=== PATIENT | female | born 1940 | race Caucasian/White ===

== ENCOUNTER 2016-04-29 15:02 | Emergency (ER) | payer OTHER ==
[~2016-04-29] VITALS: Ht 160 cm; Wt 81.6 kg
[~2016-04-29 15:02] MED LIST: METOPROLOL50 MG; MULTI VITAMINS1 TAB PO; NORCO 10/325 MG1 TAB; OMEPRAZOLE40 MG PO; PROMETHAZINE25 M1; ROPINIROLE HYDRO1 MG; VASOTEC10 M1 PO; [UNRECOGNIZED DRUG - OTHER]
[2016-04-29 15:03] VITALS: BP 148/57
--- NOTE | 2016-04-29 15:20 | NUR ---
PT TAKEN TO BED 6 VIA WHEELCHAIR.
--- NOTE | 2016-04-29 15:31 | NUR ---
75/F presents to ED for evaluation of right leg pain x1 day. Pt states "I twisted my leg yesterday." Pt also complaining of lower back pain. Patient is AOX4, w/c assisted to bed. Pt c/o 10 pain. Pt also states she has shortness of breath. No signs of respiratory distress noted. VSS.
[2016-04-29] MEDS ORDERED: HYDROmorphone 1 MG/ML AMP IM ONE (16:45)
[2016-04-29] MEDS ORDERED: ONDANSETRON 4 MG/2 ML VIAL IM ONE (16:45)
--- NOTE | 2016-04-29 17:23 | NUR ---
Patient appears to be resting comfortably in bed. Vital Signs within normal limits. Respirations even and unlabored. Family at bedside.
--- NOTE | 2016-04-29 17:54 | NUR ---
IV removed, catheter intact and site benign. Applied folded 4x4 gauze and tape to stop bleeding.
[2016-04-29 18:02] VITALS: BP 140/50
== END 2016-04-29 18:03 | disposition home or self-care (01) ==
LOC: MED 15:02
DX: M54.41 Lumbago with sciatica, right side (principal); M47.816 Spondylosis without myelopathy or radiculopathy, lumbar region; I10 Essential (primary) hypertension; K21.9 Gastro-esophageal reflux disease without esophagitis; E78.00 Pure hypercholesterolemia, unspecified; Z88.6 Allergy status to analgesic agent; Z79.899 Other long term (current) drug therapy
CPT/HCPCS: 72110; 96374; 96375; 99284; J1170; J2405

== ENCOUNTER 2016-07-04 22:13 | Emergency (ER) | payer OTHER ==
[~2016-07-04] VITALS: Ht 162.6 cm; Wt 83.9 kg
[~2016-07-04 22:13] MED LIST changes: -METOPROLOL50 MG; +MULT-2410 PO; -MULTI VITAMINS1 TAB PO; -NORCO 10/325 MG1 TAB; +OMEP40EC14 PO; -OMEPRAZOLE40 MG PO; +PROM25TA27; -PROMETHAZINE25 M1; +ROPI1TAB14; -ROPINIROLE HYDRO1 MG; +VAS10 PO; -VASOTEC10 M1 PO; -[UNRECOGNIZED DRUG - OTHER]
[2016-07-04 22:20] VITALS: BP 135/100
--- NOTE | 2016-07-04 22:25 | NUR ---
BIBA TO ER BED 3
--- NOTE | 2016-07-04 22:28 | NUR ---
75 Y/O BIBA C/O LEFT LEG AND LOWER BACK PAIN. PER PT NO TRAUMA NOR INJURY, CHRONIC PAIN, IT HURST ONLY WHEN MOVING OR CHANGING POSITIONS. PER PT SHE RUN OUT OF [employer] TODAY. NO S/S OF DISTRESS NOTED AT THE MOMENT. ER MADE AWARE.
[2016-07-04] MEDS ORDERED: MORPHINE SULFATE 2 MG/ML SYR IM ONE (23:25)
[2016-07-05] MEDS ORDERED: HYDROmorphone 1 MG/ML AMP IM ONE ×3 (00:10→02:50)
--- NOTE | 2016-07-05 02:40 | NUR ---
Road tested pt. Able to take a few steps and then went back to bed but she jacob the steps quite well and I believe if she had a goal of where to get to she would be able to do it. Notified Dr Aguirre. Dr Aguirre to order another 0.5 of Dilaudid so she can get in the house more comfortably.
[2016-07-05 03:13] VITALS: BP 131/64
--- NOTE | 2016-07-05 03:13 | NUR ---
Able to move and walk much easier. To POV via w/c. Mounika well. Patient discharged with v/s stable. Written and verbal after care instructions given and explained. Patient alert, oriented and verbalized understanding of instructions. Wheel Chair Assisted with to car. All questions addressed prior to discharge. ID band removed. Patient advised to follow up with PMD. Rx of Carbon 10/325 given. Patient educated on indication of medication including possible reaction and side effects. Opportunity to ask questions provided and answered.
== END 2016-07-05 03:18 | disposition home or self-care (01) ==
LOC: MED 22:13
DX: M54.42 Lumbago with sciatica, left side (principal); K21.9 Gastro-esophageal reflux disease without esophagitis; I10 Essential (primary) hypertension; Z88.6 Allergy status to analgesic agent; Z79.899 Other long term (current) drug therapy
CPT/HCPCS: 96372; 99284; J1170; J2270

== ENCOUNTER 2016-07-07 13:11 | Emergency (ER) | payer OTHER ==
[~2016-07-07] VITALS: Ht 162.6 cm; Wt 86.2 kg
[2016-07-07 13:15] VITALS: BP 140/71
--- NOTE | 2016-07-07 13:45 | NUR ---
PT W/C ASSISTED TO BED 7.
--- NOTE | 2016-07-07 13:47 | NUR ---
75F BIB GRANDDAUGHTER C/O ACHING LEFT LEG PAIN, RADIATES TO LEFT HIP AND LOWER BACK, 12/25 X 5 DAYS; PT DENIES TRAUMA OR INJURY TO SITE; LEFT PEDAL PULSE PALPABLE, LEFT CAP REFILL < 3 SECONDS, NO LOSS OF SENSATION TO LEFT LEG AT THIS TIME; NO SWELLING, REDNESS, OR HEAT NOTED TO LEFT LEG AT THIS TIME; PT A&OX4, BL LUNG SOUNDS CLEAR, RR EVEN/UNLABORED, SKIN IS WARM/DRY/INTACT AT THIS TIME; PT DENIES N/V/D AT THIS TIME; PT RESTING IN BED W/ HOB ELEVATED AND IN LOWEST POSITION; POSITIONED FOR COMFORT; ER MD MADE AWARE OF STATUS. WILL CONTINUE TO MONITOR.
[2016-07-07] MEDS ORDERED: NACL 0.9% 1,000 ML IV SCH (13:48)
[2016-07-07] MEDS ORDERED: HYDROmorphone 1 MG/ML AMP IVP ONE (13:50)
[2016-07-07] MEDS ORDERED: ONDANSETRON 4 MG/2 ML VIAL IVP ONE (13:50)
[2016-07-07 14:10] LABS: BASOPHILS # (AUTO) 0.1 K/uL (0.00-0.22); BASOPHILS % (AUTO) 1.3 % (0.0-2.0); EOSINOPHILS # (AUTO) 0.1 K/uL (0-0.4); EOSINOPHILS % (AUTO) 1.6 % (0.0-4.0); HEMATOCRIT 42.4 % (36-48); HEMOGLOBIN 13.9 g/dL (12.0-16.0); LYMPHOCYTES # (AUTO) 1.1 K/uL (2.5-16.5); LYMPHOCYTES % (AUTO) 15.4 % (20.5-51.1); MEAN CORPUSCULAR HEMOGLOBIN 29 pg (27-31); MEAN CORPUSCULAR HGB CONC 33 g/dL (33-37); MEAN CORPUSCULAR VOLUME 89 fL (80-94); MONOCYTES # (AUTO) 0.4 K/uL (0.8-1.0); MONOCYTES % (AUTO) 5.4 % (1.7-9.3); NEUTROPHILS # (AUTO) 5.7 K/uL (1.8-7.7); NEUTROPHILS % (AUTO) 76.3 % (42.2-75.2); PLATELET COUNT (AUTO) 220 K/uL (140-450); RED BLOOD CELL COUNT(AUTO) 4.75 MIL/uL (4.20-5.40); RED CELL DISTRIBUTION WIDTH 14.4 % (11.6-13.7); WHITE BLOOD COUNT (AUTO) 7.4 K/uL (4.8-10.8)
[2016-07-07 14:18] LABS: ANION GAP 15.1 (8-16); CALCIUM 9.4 mg/dL (8.5-10.1); CARBON DIOXIDE 26.1 mmol/L (21-32); CHLORIDE 106 mmol/L (98-107); CREATININE 0.9 mg/dL (0.6-1.3); GLUCOSE 113 mg/dL (74-106); POTASSIUM 4.2 mmol/L (3.5-5.1); SODIUM SERUM 143 mmol/L (136-145); UREA NITROGEN, BLOOD 17 mg/dL (7-18)
[2016-07-07 14:24] LABS: ALANINE AMINOTRANSFERASE 17 U/L (12-78); ALBUMIN 3.8 g/dL (3.4-5.0); ALKALINE PHOSPHATASE 119 U/L (46-116); AMYLASE 26 U/L (25-115); ASPARTATE AMINOTRANSFERASE 18 U/L (15-37); LIPASE 74 U/L (73-393); TOTAL BILIRUBIN 0.3 mg/dL (0.0-1.0); TOTAL PROTEIN, SERUM 7.8 g/dL (6.4-8.2)
[2016-07-07 14:50] LABS: APPEARANCE,URINE CLEAR (CLEAR); BILIRUBIN,URINE NEGATIVE (NEGATIVE); BLOOD, URINE NEGATIVE (NEGATIVE); COLOR,URINE YELLOW (YELLOW); LEUKOCYTE ESTERASE ,URINE NEGATIVE (NEGATIVE); NITRITE, URINE NEGATIVE (NEGATIVE); PROTEIN,URINE NEGATIVE (NEGATIVE); UGLUCOSE NEGATIVE (NEGATIVE); UROBILINOGEN,URINE 0.2 EU/dL (0.2 - 1)
[2016-07-07 14:59] LABS: BACTERIA,URINE RARE /HPF (None Seen); RBC,URINE 0-3 /HPF (0-5); SQUAMOUS EPITHELIAL CELL,UR 0-3 /LPF (0-3 (FEW)); WBC,URINE 0-3 /HPF (0-5)
--- NOTE | 2016-07-07 15:40 | NUR ---
IV removed, catheter intact and site benign. Applied folded 4x4 gauze and tape to stop bleeding. PT TOELRATED PROCEDURE WELL.
[2016-07-07 15:42] VITALS: BP 120/57
--- NOTE | 2016-07-07 15:42 | NUR ---
Patient discharged with v/s stable. Written and verbal after care instructions given and explained. Patient alert, oriented and verbalized understanding of instructions. Wheel Chair Assisted with to car. All questions addressed prior to discharge. ID band removed. Patient advised to follow up with PMD. Rx of NORCO 10MG-325MG TAB & ZOFRAN ODT 4MG given. Patient educated on indication of medication including possible reaction and side effects. Opportunity to ask questions provided and answered.
== END 2016-07-07 15:42 | disposition home or self-care (01) ==
LOC: MED 13:11
DX: M54.40 Lumbago with sciatica, unspecified side (principal); K21.9 Gastro-esophageal reflux disease without esophagitis; I10 Essential (primary) hypertension; G89.29 Other chronic pain; Z88.6 Allergy status to analgesic agent
CPT/HCPCS: 36415; 80053; 81001; 82150; 83690; 85025; 93971; 96361; 96374; 96375; 99285; J1170; J2405; J7030; Q0092

== ENCOUNTER 2017-07-15 12:09 | Emergency (ER) | payer OTHER ==
[~2017-07-15] VITALS: Ht 154.9 cm; Wt 84.5 kg
[2017-07-15 12:11] VITALS: BP 151/66
--- NOTE | 2017-07-15 12:20 | NUR ---
PATIENT PRESENTS TO ED WITH C/O LEFT FLANK PAIN RADIATING TO HER BACK, FOR 3 DAYS , WITH N/V; DENIES N/V/D; SKIN IS PINK/WARM/DRY; AAOX4 WHEEL CHAIR ASSISTED TO BED 12; LUNGS CLEAR BL; HR EVEN AND REGULAR; PT DENIES ANY FEVER, CP, SOB, OR COUGH AT THIS TIME; PATIENT STATES PAIN OF 7/10 AT THIS TIME; VSS; PATIENT POSITIONED FOR COMFORT; HOB ELEVATED; BEDRAILS UP X2; BED DOWN. ER MD MADE AWARE OF PT STATUS.
--- NOTE | 2017-07-15 12:35 | NUR ---
PT TAKEN TO CT VIA GURMAUREEN BY PHYSICAL GEOGRAPHER
[2017-07-15] MEDS ORDERED: NACL 0.9% 1,000 ML IV ONE (12:50)
[2017-07-15] MEDS ORDERED: ONDANSETRON 4 MG/2 ML VIAL IVP ONE (12:50)
[2017-07-15] MEDS ORDERED: MORPHINE SULFATE 4 MG/ML SYR IVP ONE (12:50)
[2017-07-15 14:45] LABS: APPEARANCE,URINE CLEAR (CLEAR); BILIRUBIN,URINE NEGATIVE (NEGATIVE); BLOOD, URINE TRACE-I (NEGATIVE); LEUKOCYTE ESTERASE ,URINE NEGATIVE (NEGATIVE); NITRITE, URINE NEGATIVE (NEGATIVE); UGLUCOSE NEGATIVE (NEGATIVE)
[2017-07-15 14:53] LABS: COLOR,URINE STRAW (YELLOW)
[2017-07-15 15:02] LABS: RBC,URINE 0-5 (RARE) /HPF (0-5)
[2017-07-15 15:03] LABS: WBC,URINE NONE SEEN /HPF (0-5)
[2017-07-15] MEDS ORDERED: MORPHINE SULFATE 2 MG/ML SYR IVP ONE (15:20)
[2017-07-15] MEDS ORDERED: MORPHINE SULFATE 4 MG/ML SYR ONE (15:23)
[2017-07-15 15:40] VITALS: BP 123/41
== END 2017-07-15 15:44 | disposition home or self-care (01) ==
LOC: MED 12:09
DX: K59.00 Constipation, unspecified (principal); K21.9 Gastro-esophageal reflux disease without esophagitis; I10 Essential (primary) hypertension; E78.5 Hyperlipidemia, unspecified; Z88.5 Allergy status to narcotic agent; Z79.899 Other long term (current) drug therapy; Z85.038 Personal history of other malignant neoplasm of large intestine
CPT/HCPCS: 74176; 81001; 96361; 96374; 96375; 96376; 99285; J2270; J2405; J7030

== ENCOUNTER 2020-10-12 14:47 | Emergency (ER) | payer OTHER, SELFPAY ==
[~2020-10-12] VITALS: Ht 157.5 cm; Wt 83.5 kg
[~2020-10-12 14:47] MED LIST changes: +ENAL10TA99 PO; -OMEP40EC14 PO; +OMEP40EC23 PO; -ROPI1TAB14; +ROPI1TAB16; -VAS10 PO
[2020-10-12 14:51] VITALS: BP 117/66
--- NOTE | 2020-10-12 17:33 | NUR ---
Patient discharged with v/s stable. Written and verbal after care instructions given and explained. Patient verbalized understanding. Ambulatory with steady gait. All questions addressed prior to discharge. Advised to follow up with PMD.
--- NOTE | 2020-10-14 11:33 | NUR ---
RECEIVED LAB RESULTS PT NAYA Ramon MD MADE AWARE. COPY SENT TO INFECTION CONTROL.
== END 2020-10-12 17:33 | disposition home or self-care (01) ==
LOC: MED 14:47
DX: B34.9 Viral infection, unspecified (principal); Z20.822 Contact with and (suspected) exposure to COVID-19; K21.9 Gastro-esophageal reflux disease without esophagitis; E78.5 Hyperlipidemia, unspecified; I10 Essential (primary) hypertension; Z79.899 Other long term (current) drug therapy
CPT/HCPCS: 71045; 93005; 99285; U0003

== ENCOUNTER 2020-10-20 11:23 | Emergency (ER) | payer OTHER, SELFPAY ==
[~2020-10-20] VITALS: Ht 157.5 cm; Wt 83.5 kg
[~2020-10-20 11:23] MED LIST changes: +APIX2.5 PO; +DEC4 PO; +METO25TA14 PO; +OXYC40TE66 PO; +PARO10TA8 PO
[2020-10-20 11:49] VITALS: BP 144/63
--- NOTE | 2020-10-20 11:53 | NUR ---
TENT 2
[2020-10-20] MEDS ORDERED: ONDANSETRON 4 MG/2 ML VIAL IVP ONE (13:00)
[2020-10-20] MEDS ORDERED: NACL 0.9% 1,000 ML IV ONE (13:00)
--- NOTE | 2020-10-20 13:11 | NUR ---
PT MOVED TO BED 6 VIA W/C.
--- NOTE | 2020-10-20 13:30 | NUR ---
PT WENT TO RESTROOM ACCOMPANIED BY [facility]
--- NOTE | 2020-10-20 13:42 | NUR ---
79YO F BROUGHT IN BY GRANDDAUGHTER WITH C/O NAUSEA VOMITTING AFTER TAKING MEDICATIONS THAT WAS PRESCRIBED BY DR AVILEZ D/C FOR DX OF COVID YESTERDAY. THE MEDICATIONS ARE APAXIBAN AND DEXAMETHASONE. PMH: HTN, GERD, DM. RX: VASOTEC, METOPROLOL, DAILY MUTLIVITANMIN, PRILOSEC, OXYCODONE, PAROXETINE, PROMETHAZINE, ROPINIROLE, APAXIBAN, DECADRON. KOLBY
--- NOTE | 2020-10-20 14:00 | NUR ---
IV ESTABLISH TO RIGHT HAND 22G PATENT INTACT. MEDICATION ADMINISTERED, WILL CONTINUE TO MONITOR.
--- NOTE | 2020-10-20 14:05 | NUR ---
LAB DRAWN AND GIVEN TO [facility]IL[facility] OPERATOR
--- NOTE | 2020-10-20 14:13 | NUR ---
PT MOVED TO BED 3 FOR COVID PRECAUTIONS.
[2020-10-20 14:14] LABS: BASOPHILS % (AUTO) 0.3 % (0.0-2.0); HEMATOCRIT 38.7 % (36-48); LYMPHOCYTES # (AUTO) 1.2 K/uL (2.5-16.5); LYMPHOCYTES % (AUTO) 12.7 % (20.5-51.1); MEAN CORPUSCULAR HEMOGLOBIN 30 pg (27-31); MEAN CORPUSCULAR HGB CONC 34 g/dL (33-37); MEAN CORPUSCULAR VOLUME 90.7 fL (80-94); MONOCYTES % (AUTO) 10.8 % (1.7-9.3); NEUTROPHILS # (AUTO) 7.3 K/uL (1.8-7.7); NEUTROPHILS % (AUTO) 76.2 % (42.2-75.2); PLATELET COUNT (AUTO) 201 K/uL (140-450); RED BLOOD CELL COUNT(AUTO) 4.26 MIL/uL (4.20-5.40); RED CELL DISTRIBUTION WIDTH 14.4 % (11.6-13.7); WHITE BLOOD COUNT (AUTO) 9.5 K/uL (4.8-10.8)
[2020-10-20 14:27] LABS: ANION GAP 15.8 (8-16); CHLORIDE 97 mmol/L (98-107); CREATININE 0.8 mg/dL (0.6-1.3); GLUCOSE 78 mg/dL (74-106); POTASSIUM 3.8 mmol/L (3.5-5.1); SODIUM SERUM 133 mmol/L (136-145); UREA NITROGEN, BLOOD 16 mg/dL (7-18)
[2020-10-20 14:33] LABS: ALBUMIN 3.2 g/dL (3.4-5.0); ASPARTATE AMINOTRANSFERASE 64 U/L (15-37); LIPASE 38 U/L (73-393); TOTAL BILIRUBIN 0.5 mg/dL (0.0-1.0)
[2020-10-20] MEDS ORDERED: ONDA-24 PO (15:11)
[2020-10-20 15:30] VITALS: BP 136/61
== END 2020-10-20 15:31 | disposition home or self-care (01) ==
LOC: MED 11:23
DX: R11.2 Nausea with vomiting, unspecified (principal); U07.1 COVID-19; K21.9 Gastro-esophageal reflux disease without esophagitis; I10 Essential (primary) hypertension; Z79.899 Other long term (current) drug therapy
CPT/HCPCS: 36415; 80053; 83690; 85025; 96361; 96374; 99283; J2405; J7030